=== PATIENT | male | born 1960 | race African-American/Black ===

== ENCOUNTER 2024-08-30 23:59 | Outpatient (BNV) | payer MEDICARE, MEDICAID, SELFPAY | END 2024-09-06 23:59 | PROVIDERS: PCP Internal Medicine Endocrinology, Diabetes & Metabolism; Visit Provider Internal Medicine | DX: I48.91 Unspecified atrial fibrillation (principal); R79.89 Other specified abnormal findings of blood chemistry | CPT/HCPCS: 99223 ==